=== PATIENT | female | born 1970 | race Caucasian/White ===

== ENCOUNTER → 2023-07-05 09:40 | Outpatient (POV) | payer OTHER, SELFPAY ==
[2023-07-05 10:28] VITALS: BP 125/71; PULSE 90; RESP 18; O2SAT 96; BMI 39.0
--- NOTE | 2023-07-05 10:33 | EXP.PAIN.OV ---
HPI Data of Consult Patient: new to practice Consult date: 07/05/23 Requesting Physician: Nelda Ferraro APRN Consult Narrative Reason for consult: Intrathecal pain pump establishment of care History of present illness: Ms. Hill is a 52 year old female who presents today as a new patient. She is a referral from Gloria Garcia's office. Today she rates her pain a 3 out of 10. Patient states her pain is all in her knee and bilateral legs related to CRPS. She states this has been going on for more than 15 years and is related to a injury at work where she missed a step coming down off a ladder. Patient states she did at that time tried more conservative measures such as [id number] medications such as Tylenol and ibuprofen, heat and ice and topicals with no additional relief. She had also gone to physical therapy with no additional improvement. She states she did start seeing a pain management in [facility] where they did try a spinal cord stimulator however approximately 6 months into the implant the device stopped working and her pain was changing and she had it removed. Patient then had a intrathecal device placed and has gotten good coverage since. Currently she has had her device replaced with a [employer]gana Ptytronic intrathecal pump and is doing well. Her pump location is in the left side of her lower abdomen. She is currently managed with Dilaudid 16.5 mg/mL with a daily dose of 3.3 mg/day and bupivacaine 15.1 mg/mL with a daily dose of 3.02 mg/day. Patient denies any side effects from this medication. She does state that this is really helping her and made a significant difference in her overall function. She does state that unfortunately her current provider retired and so she has been looking to reestablish care with a facility closer to home. Patient states she was having to drive approximately 4 hours in total to get her pump refilled and that she does just live in [place] which is approximately 20 minutes away. Patient is also managed with alprazolam 1 mg 3 times a day. Her Caleb is [id number]. Its been reviewed and appropriate. CC: Nelda Ferraro APRN [facility] Disclaimer: The information contained in this section may have been updated after the patient was seen, as this information can be updated by other users. Medical History (Updated 07/05/23 @ 10:37 by Nelda Ferraro APRN) Anxiety Bladder retention CRPS (complex regional pain syndrome) Failed spinal cord stimulator HTN (hypertension) Implantable intrathecal infusion pump present Surgical History (Updated 07/05/23 @ 10:30 by Kavitha Bhatti, RN) H/O left knee surgery History of section Hx of tonsillectomy Social History (Updated 07/05/23 @ 10:31 by Kavitha hBatti, RN) Smoking Status: Current every day smoker alcohol intake: never current occupational status: employed Travel in the last 8 weeks: None Review of Systems Review of Systems Review of systems:: pertinent systems reviewed and negative unless documented below Review of systems (narrative): Review of Systems: General: No recent weight changes, no fever, no sleep disturbances Respiratory: No cough, no shortness of air, no recurring pulmonary infections Cardiovascular/peripheral vascular: No chest pain, no palpitations, no edema, no shortness of breath Gastrointestinal: No new onset incontinence, normal bowel movements reported Genitourinary: No new onset incontinence Musculoskeletal: Bilateral leg pain, knee pain Psychiatric: [Normal mood/affect] Neurological: [Denies weakness in extremities], [denies balance issues] Meds Home Medications and Allergies Home Medications Medication Instructions Recorded Confirmed Type alprazolam 1 mg tablet 1 mg PO Q8H Anxiety 07/05/23 07/05/23 History bupivacaine (PF) 0.25 % (2,500 1 ml epidural CONT CRPS 07/05/23 07/05/23 History mcg/mL) epidural solution celecoxib 200 mg capsule 200 mg PO DAILY Pain 07/05/23 07/05/23 History esomepr
== END ==
PROVIDERS: Visit Provider Nurse Practitioner Family
DX: G90.523 Complex regional pain syndrome I of lower limb, bilateral (principal); G89.4 Chronic pain syndrome; Z97.8 Presence of other specified devices
CPT/HCPCS: 99202; G0463

== ENCOUNTER 2023-07-24 10:38 | Day surgery (SDC) | payer OTHER, BC, SELFPAY ==
[2023-07-24 10:51] VITALS: BP 148/92; PULSE 87; RESP 17; O2SAT 98; BMI 39.1
[2023-07-24 11:14] VITALS: BP 136/76; PULSE 80; RESP 18; O2SAT 98
[2023-07-24 11:15] VITALS: BP 136/76; PULSE 80; RESP 18; O2SAT 98
--- NOTE | 2023-07-24 11:24 | P.PCN_ITS ---
Procedure Date: 07/24/23 Time: 11:15 Anesthesiologist:: Sonny Tabares CRNA Complications:: None Pre-procedure Diagnosis:: CRPS bilateral lower limbs. Chronic pain syndrome. Post-procedure Diagnosis:: Same. Indications for Procedure:: Patient is a pleasant 52-year-old female comes our clinic today for intrathecal pain pump interrogation refill. Patient has come to us recently from previous pain clinic for intrathecal pain pump management. She has a Medtronic intrathecal pain pump in the left lower abdomen. Her pump contains Dilaudid 16.5 mg/mL with a daily dose of 3.3 mg/day. Bupivacaine 15.1 mg/mL with a daily dose of 3.02 mg/day. Patient denies any side effects or complications from the current intrathecal pain pump management Procedure Details:: Details of the procedure explained to the patient. The patient taken the [facility] room placed in the supine position on the fluoroscopy table. The area of the pump was cleansed using chlorhexidine as a cleansing solution. The pump was interrogated. Using fluoroscopy guidance the intrathecal pain pump was accessed with ease using a 22-gauge inch and half needle. 5 mL of solution was withdrawn and discarded appropriately. The pump was then filled incrementally with 20 cc of a solution containing Dilaudid 16.5 mg/mL and bupivacaine 15.1 mg/mL. The pump was filled incrementally with the fluoroscopy in the lateral position. Patient tolerated procedure without difficulty. There are no complications. Plan and Disposition:: Patient was discharged without incident.
[2023-07-24 11:31] VITALS: BP 134/80; PULSE 79; RESP 20
[2023-07-24 12:33] LABS: Amphetamine/Metha Screen,Urine Negative ng/ml (<1000); Benzodiazepines Screen,Urine Negative ng/ml (<200)
[2023-07-24 12:34] LABS: Barbiturates Screen,Urine Negative ng/ml (<200)
[2023-07-24 12:35] LABS: Cannabinoid Screen,Urine Negative ng/ml (<50); Methadone Screen,Urine Negative ng/ml (<300)
[2023-07-24 12:36] LABS: Cocaine Screen,Urine Negative ng/ml (<300); Opiate Screen,Urine Positive ng/ml (<300)
[2023-07-24 12:37] LABS: Phencyclidine Screen,Urine Negative ng/ml (<25)
[2023-07-31 03:44] LABS: Codeine Negative (Cutoff=100); Hydrocodone Negative (Cutoff=100); Hydromorphone Positive (.); Morphine Negative (Cutoff=100); Opiates Positive (.)
== END 2023-07-24 11:32 | disposition home or self-care (01) ==
PROVIDERS: Anesthesiology; PCP Nurse Practitioner; Visit Provider Nurse Anesthetist, Certified Registered
DX: G90.523 Complex regional pain syndrome I of lower limb, bilateral (principal); Z97.8 Presence of other specified devices
CPT/HCPCS: 80305; 80361; 80365; 95991; G0480

== ENCOUNTER 2023-10-09 11:17 | Day surgery (SDC) | payer OTHER, SELFPAY ==
--- OUTSIDE RECORDS SUMMARY | 2023-10-09 11:19 | XMS_ITS | Patient Health Record ---
Author Name Unknown Organization [facility] Address [address] [place] [address] [place] [address] Care Team Providers Care Product Support Representative Name Role Phone AbdiZaina Primary Care Provider Ofelia Dee Unavailable [phone] Danisha Marcial Unavailable [phone] ALLERGIES No Known Allergies REASON FOR REFERRAL No Information MEDICATIONS Medication SIG (Take, Route, Frequency, Duration) Notes Start Date End Date Status Ondansetron HCl 4 MG take 1 tablet by mo uth three times a day Orally once a day for 30 days Active EQ Omeprazole 20 MG 2 tablets Orally Onc e a day for 30 day(s) 03/05/2019 Active Saxenda 18 MG/3ML as directed Subcutan eous once a day Active Dilaudid 4 MG 1 tablet as needed O rally every 6 hrs for 30 days PRN 02/26/2023 Active NexIUM 40 MG take 1 capsule by mo uth every morning Once a day Orally 30 days Orally once a day for 90 days Active CeleBREX 200 MG take 1 capsule by mo uth once daily Orally once a day for 30 days Active Gabapentin 300 MG 1 capsule Orally Onc e a day for 30 day(s) 02/26/2023 Active Venlafaxine HCl ER 150 MG take 1 capsule by mouth every morning with food Orally once a day for 30 Active Xanax 1 MG 1 tablet Orally ever y 8 hours for 30 days 02/26/2023 Active Naloxone HCl 4 MG/0.1ML as directed Nasa lly as needed for 30 days
[2023-10-09 11:30] VITALS: BP 160/77; PULSE 88; RESP 18; TEMP 36.4; O2SAT 94; BMI 39.3
[2023-10-09 11:43] VITALS: BP 132/72; PULSE 110; O2SAT 94
[2023-10-09 11:51] VITALS: BP 132/72; PULSE 87; O2SAT 95
[2023-10-09 11:53] VITALS: BP 158/83; PULSE 86; RESP 16; O2SAT 94
--- NOTE | 2023-10-09 11:56 | EXP.PAIN.PRO ---
Procedure Date: 10/09/23 Time: 11:50 Anesthesiologist:: Sonny Tabares CRNA Complications:: None Pre-procedure Diagnosis:: CRPS type I lower limbs. Chronic pain syndrome. Post-procedure Diagnosis:: Same. Indications for Procedure:: Patient is a very pleasant 53-year-old female comes our clinic today for intrathecal pain pump interrogation refill. Patient is currently being managed with Dilaudid 16.5 mg/mL at a rate of 3.3 mg/day. Bupivacaine 15.1 mg/mL at a rate of 3.020 mg/day. Patient doing very well to current settings. She is not requesting any changes. Procedure Details:: Details of the procedure explained to the patient. The patient taken to procedure room placed in the supine position on the fluoroscopy table. The area of the pump was cleaned using chlorhexidine's cleansing solution. Using fluoroscopy guidance the intrathecal pain pump was accessed with ease. 5 mL of solution was withdrawn and discarded appropriately. The pump was then filled with 20 cc of a solution containing Dilaudid 16.5 mg/mL and bupivacaine 15.1 mg/mL. No changes on the right. Patient tolerated procedure without difficulty. There are no complications. Plan and Disposition:: Patient was discharged without incident.
== END 2023-10-09 11:53 | disposition home or self-care (01) ==
PROVIDERS: PCP Nurse Practitioner; Visit Provider Nurse Anesthetist, Certified Registered
DX: G90.523 Complex regional pain syndrome I of lower limb, bilateral (principal); G89.4 Chronic pain syndrome
CPT/HCPCS: 95991

== ENCOUNTER 2023-12-24 13:28 | Outpatient (CLI) | payer OTHER, SELFPAY ==
[2023-12-24 13:56] LABS: Basophils # 0.1 K/mm3 (0-0.2); Basophils % 0.7 % (0.1-2.0); Eosinophils # 0.2 K/mm3 (0.0-0.4); Eosinophils % 2.4 % (0.1-12.0); Hematocrit 40.5 % (37.0-47.0); Hemoglobin 13.4 g/dL (12.2-16.2); Lymphocytes # 2.2 K/mm3 (0.7-4.5); Lymphocytes % 25.6 % (10-50); Mean Corpuscular HGB Conc 33.2 g/dL (31.8-35.4); Mean Corpuscular Hemoglobin 30.3 pg (27.0-31.2); Mean Corpuscular Volume 91.3 fl (81-99); Mean Platelet Volume 7.8 fl (7.4-10.4); Monocytes # 0.4 K/mm3 (0.1-1.0); Monocytes % 5.2 % (1.7-9.3); Neutrophils # 5.5 K/mm3 (1.8-7.8); Platelet Count 278 K/mm3 (142-424); Red Blood Count 4.44 M/mm3 (4.20-5.40); Red Cell Distribution Width 13.9 % (11.5-17.5); White Blood Count 8.4 K/mm3 (4.8-10.8)
[2023-12-24 14:39] LABS: Anion Gap 8.7 mEq/L (5-15); Blood Urea Nitrogen 9 mg/dl (7-17); Calcium 9.5 mg/dl (8.4-10.2); Carbon Dioxide 32 mmol/L (22.0-30.0); Chloride 103 mmol/L (98-107); Estimated Glomerular Filt Rate 105 ml/min (>60); GFR (African American) 127 ML/MIN (>60); Glucose 109 mg/dl (74-100); Potassium 3.7 mmoL/L (3.5-5.1); Sodium 140 mmol/L (136-145)
[2023-12-24 15:04] LABS: Barbiturates Screen,Urine Negative ng/ml (<200)
[2023-12-24 15:05] LABS: Amphetamine/Metha Screen,Urine Negative ng/ml (<1000); Benzodiazepines Screen,Urine Negative ng/ml (<200)
[2023-12-24 15:06] LABS: Methadone Screen,Urine Negative ng/ml (<300)
[2023-12-24 15:07] LABS: Cannabinoid Screen,Urine Negative ng/ml (<50); Cocaine Screen,Urine Negative ng/ml (<300)
[2023-12-24 15:08] LABS: Opiate Screen,Urine Positive ng/ml (<300)
[2023-12-24 15:09] LABS: Phencyclidine Screen,Urine Negative ng/ml (<25)
== END 2023-12-24 23:59 ==
LOC: LAB 13:29
PROVIDERS: PCP Nurse Practitioner; Visit Provider Anesthesiology
DX: Z01.812 Encounter for preprocedural laboratory examination (principal); M51.36 Other intervertebral disc degeneration, lumbar region; Z79.899 Other long term (current) drug therapy
CPT/HCPCS: 36415; 80048; 80307; 85025

== ENCOUNTER 2023-12-28 06:00 | Day surgery (SDC) | payer OTHER, SELFPAY ==
[2023-12-25 16:40] VITALS: BMI 41.1
[2023-12-28] VITALS (7 sets, daily range): BP systolic 112–143; BP diastolic 68–90; PULSE 77–85; RESP 16–18; TEMP 36.3–36.6; O2SAT 95–99
[2023-12-28] MEDS: LACTATED RINGERS 1000ML 1,000 ML 25 ML IV (06:17)
[2023-12-28] MEDS: VANCOMYCIN HCL 2,000 MG in 0.9 % SODIUM CHLORIDE 250 ML 125 MG IV (07:02)
--- NOTE | 2023-12-28 08:02 | P.PNANES_ITS ---
[facility] Disclaimer: The information contained in this section may have been updated after the patient was seen, as this information can be updated by other users. Medical History Anxiety Bladder retention CRPS (complex regional pain syndrome) Failed spinal cord stimulator HTN (hypertension) Implantable intrathecal infusion pump present Surgical History H/O left knee surgery History of section Hx of tonsillectomy Family History Other No significant family history Social History Smoking Status: Current every day smoker alcohol intake: never substance use type: denies use current occupational status: employed Travel in the last 8 weeks: None [facility] Anesthesia Checklist Patient Identification Patient Identification: Verbal (Name & ) Structural Data Admitted From: Home Planned Operative Procedure/s: ipp Consent for Planned Operative Procedure(s) Verified: Yes NPO Status Verified Time NPO: 00:00 Additional verifications Anesthesia Reactions: No Hx Blood Transfusions: Yes Blood Transfusion Reaction: No Airway Assessment Mallampati Score:: Class II C-Spine Mobility Assessed: Yes TMJ Mobility Assessed: Yes Dentition: Good Dentition Neurological Assessment Level of Consciousness: Awake, Alert and Appropriate Anesthesia Plan Anesthesia Risk discussed: Yes Anesthesia Plan: Verified ASA Class: III Anesthesia Type: MAC
[2023-12-28] MEDS: LIDOCAINE 1% W/EPI 1:100,000 20ML VIAL 20 ML ×2 (08:39→08:40)
[2023-12-28] MEDS: GENTAMICIN 80 MG/2 ML VIAL (08:47)
[2023-12-28] MEDS: SODIUM CHLORIDE 0.9% 20ML VIAL 40 ML IV ×2 (08:48)
[2023-12-28] MEDS: MORPHINE 4MG/ML SYRINGE 4 MG IV (09:28)
--- NOTE | 2023-12-28 09:57 | SUR.PHASEII ---
Dr. James in w/ pt and family at this time.
--- NOTE | 2023-12-28 12:50 | EXP.OP.NOTE ---
Date of procedure: 12/28/23 Pre-op Diagnosis:: End-of-life intrathecal pain pump for postlaminectomy syndrome lumbar spine with lumbar radiculopathy symptoms Post-op Diagnosis:: Same Procedure performed:: Replacement intrathecal pain pump generator Surgeon:: Mitesh James MD PATIENT CLERICAL ASSISTANT:: Chandrakant Brown Anesthesia: MAC Estimated blood loss (mL): 55 Clinical Note:: This patient is a pleasant 53-year-old white female who we have taken over management of her pump. She was implanted by Dr. German. She is on intrathecal Dilaudid 16.5 mg per mill plus bupivacaine 15.1 mg per mall at 3.3 mg/day. She has not had any issues with her pump. She has an old indura catheter in place. Her pump is nearing end-of-life. She presents for replacement today. We will check her catheter and if there are any issues with the catheter we will replace the catheter if needed. Operative findings:: None Operative note:: Informed consent was obtained the risk and benefits of the procedure were explained to the patient. Patient was taken to the operating room placed in a right lateral decubitus position. Patient was prepped and draped in sterile fashion. C-arm fluoroscopy was used to view the pump and the catheter. The skin and subcutaneous tissues overlying the pump were anesthetized using lidocaine. I made incision dissected out the pump. We then accessed the catheter access port we were able to withdraw medication and CSF through the catheter access port. We did flush catheter with saline after pulling out 0.5 mL. After flushing the catheter we were able to withdraw CSF much easier through the catheter access port. The catheter was then disconnected. We connected the catheter to the new pump. We did fill the pump with 20 mL of intrathecal Dilaudid 16.5 mg/mL and bupivacaine 15.1 mg/mL. After connecting the catheter to the pump we again accessed the Port and were able to withdraw CSF very easily. The pump was placed back in the pocket after irrigating the pocket with antibiotic solution. We placed a antibiotic pouch in the pocket. After placing the pump in the pocket we did access the Port again we were again able to withdraw CSF very easily. The pocket was then closed with 2-0 Vicryl followed by 4-0 nylon and subcutaneous gabriela. The pump was interrogated and started at 3 mg/day with PTM boluses of 0.3 mg up to 4 times a day. Refill date is March 06, 2024. The patient tolerated the procedure well with no complications. Patient was discharged home neurologic intact with good relief of pain symptoms. Plan and disposition: We will follow-up with this patient in 1 week for wound check and to remove her Prevena. Will follow-up in 2 to 3 weeks for suture removal. Condition: stable Disposition: PACU Complications:: None
== END 2023-12-28 10:20 | disposition home or self-care (01) ==
PROVIDERS: PCP Nurse Practitioner Family; Visit Provider Anesthesiology
PROC: (CPT 62362; principal; 2023-12-28 07:30)
DX: M96.1 Postlaminectomy syndrome, not elsewhere classified (principal); M54.16 Radiculopathy, lumbar region; Z97.8 Presence of other specified devices; Z45.1 Encounter for adjustment and management of infusion pump
CPT/HCPCS: 62362; 96374; C1772; J2704; J3370

== ENCOUNTER → 2024-01-04 10:00 | Outpatient (POV) | payer OTHER, SELFPAY ==
--- NOTE | 2024-01-04 10:37 | EXP.PAIN.SOA ---
[facility] Pain Management SOAP Note Subjective:: Patient is a pleasant 53-year-old female who presents today for 1 week postop of intrathecal pain pump generator replacement on 12/28/2023. We are currently treating the patient for degenerative disc disease of lumbar spine with lumbar radiculopathy symptoms, lumbar postlaminectomy syndrome. Today she rates her pain a 3 out of 10. Patient denies any new trauma or injury. She states that she is doing well following her pump replacement. She is currently managed with Dilaudid 16.5 mg/day with a daily dose of 3.004 mg/day and bupivacaine 15.1 mg/mL with a daily dose of 2.75 mg/day. Patient denies any side effects from this medication. Her Caleb has been reviewed and is appropriate. Review of Systems: General: No recent weight changes, no fever, no sleep disturbances Respiratory: No cough, no shortness of air, no recurring pulmonary infections Cardiovascular/peripheral vascular: No chest pain, no palpitations, no edema, no shortness of breath Gastrointestinal: No new onset incontinence, normal bowel movements reported Genitourinary: No new onset incontinence Musculoskeletal: Low back pain Psychiatric: [Normal mood/affect] Neurological: [Denies weakness in extremities], [denies balance issues] Objective:: Physical Exam: General: Alert and oriented x3, no acute distress, pleasant and cooperative Lungs: Respirations even and unlabored, symmetrical chest expansion Eyes: PERRL Musculoskeletal: Flexion and extension of lumbar [spine] somewhat guarded secondary to pain, [antalgic gait noted] Neurological: Speech clear, no gross sensory deficit Skin: Incision site is clean, dry, well-approximated with sutures intact no erythema noted Assessment:: Degenerative disc disease of lumbar spine with lumbar radiculopathy symptoms, lumbar postlaminectomy syndrome status post generator replacement Plan:: Patient is doing well following her intrathecal pain pump generator replacement. I have counseled the patient to continue her 6-week postop restrictions of no submerging in water until her incisions are fully healed, minimal bending, twisting or lifting, and to continue to use her abdominal binder to prevent seroma formation. Patient has been counseled that her next visit we will plan on removing her sutures and adding Steri-Strips as needed. Patient will return to clinic in 2 weeks for reevaluation of symptoms and plan of care. Patient has been instructed to contact the clinic with any concerns before the next appointment. Dr. James has reviewed this note and agrees with this plan of care. This note was dictated using voice recognition software and make contain errors or omissions. -- It Is medically necessary for this patient to continue to have their intrathecal pump refilled at regular intervals. This patient had an intrathecal pain pump implanted after meeting criteria of chronic intractable pain for greater than 3 months and failing conservative treatments. Patient has committed and been compliant to the treatment plan and all planned follow up care. Since implantation of the intrathecal pain pump, the patient has had decreased pain and been more functional. Oral medications have been reduced including intake of oral opioids. Patient continues to do well with intrathecal therapy with decrease in pain symptoms and increase in functional status. Stopping intrathecal medications can lead to life threatening withdrawal, seizures, cardiac arrest, severe pain, and possible . Pumps that are not refilled at regular intervals can be damages and cause and need for replacement. We continually titrate dose and concentration to optimize pain relief and function. We are limited in concentration for certain drugs to safely deliver medications through the pump and stay within the recommendations from the Polyanalgesic Consensus Committee Guidelines. Depending on dose and concentration these pumps may need to be refilled sooner than 3 months as we titrate. [facility] Disclaimer: The information contained in this section may have been updated after the patient was seen, as this information can be updated by other users. Medical History Anxiety Bladder retention CRPS (complex regional pain syndrome) Failed spinal cord stimulator HTN (hypertension) Implantable intrathecal infusion pump present Surgical History H/O left knee surgery History of section Hx of tonsillectomy Family History Other No significant family history Social History (Updated 12/28/23 @ 08:03 by Chandrakant Brown CRNA) Smoking Status: Current every day smoker alcohol intake: never substance use type: denies use current occupational status: employed Travel in the last 8 weeks: None
[2024-01-04 11:39] VITALS: BP 166/91; PULSE 99; RESP 20; O2SAT 96; BMI 41.1
== END ==
LOC: SC.PAIN 10:01
PROVIDERS: PCP Nurse Practitioner Family; Visit Provider Nurse Practitioner Family
DX: M51.16 Intervertebral disc disorders with radiculopathy, lumbar region (principal); M96.1 Postlaminectomy syndrome, not elsewhere classified; Z97.8 Presence of other specified devices
CPT/HCPCS: 99212; G0463

== ENCOUNTER 2024-01-17 10:26 | Outpatient (POV) | payer OTHER, SELFPAY ==
--- NOTE | 2024-01-17 10:52 | EXP.PAIN.SOA ---
[facility] Pain Management SOAP Note Subjective:: Patient is a pleasant 53-year-old female who presents today for follow-up. We are currently treating the patient for degenerative disc disease of lumbar spine with lumbar radiculopathy symptoms, lumbar postlaminectomy syndrome. Today she rates her pain at 3 out of 10. Patient denies any new trauma or injury. She states she continues to do well following her intrathecal pain pump generator replacement on December 28. Patient does state that the current dosage still works well for her. She is currently managed with intrathecal Dilaudid 16.5 mg/mL with a daily dose of 3.004 mg/day and bupivacaine 15.1 mg/mL on a daily dose of 2.75 mg/day her Caleb has been reviewed and is appropriate. Review of Systems: General: No recent weight changes, no fever, no sleep disturbances Respiratory: No cough, no shortness of air, no recurring pulmonary infections Cardiovascular/peripheral vascular: No chest pain, no palpitations, no edema, no shortness of breath Gastrointestinal: No new onset incontinence, normal bowel movements reported Genitourinary: No new onset incontinence Musculoskeletal: Low back pain Psychiatric: [Normal mood/affect] Neurological: [Denies weakness in extremities], [denies balance issues] Objective:: Physical Exam: General: Alert and oriented x3, no acute distress, pleasant and cooperative Lungs: Respirations even and unlabored, symmetrical chest expansion Eyes: PERRL Musculoskeletal: Flexion and extension of lumbar [spine] somewhat guarded secondary to pain, [antalgic gait noted] Neurological: Speech clear, no gross sensory deficit Skin: Incision is clean, dry, well-approximated with sutures intact, minimal erythema noted Assessment:: Degenerative disc disease of lumbar spine with lumbar radiculopathy symptoms, lumbar postlaminectomy syndrome Plan:: Patient continues to do well with her pump generator replacement. Patient did have all of her sutures removed during today's visit. I have counseled the patient to continue her postop restrictions for the full 6 weeks. Patient is requesting if she can go back to work. Patient is a solar field service technician. I have counseled the patient that this is fine just to continue to monitor certain movements such as bending, twisting or lifting and minimizing lifting no more than 10 pounds at this time. Patient will return to clinic in 1 month for reevaluation of symptoms and plan of care. Patient has been instructed to contact the clinic with any concerns before the next appointment. Dr. James has reviewed this note and agrees with this plan of care. This note was dictated using voice recognition software and make contain errors or omissions. -- It Is medically necessary for this patient to continue to have their intrathecal pump refilled at regular intervals. This patient had an intrathecal pain pump implanted after meeting criteria of chronic intractable pain for greater than 3 months and failing conservative treatments. Patient has committed and been compliant to the treatment plan and all planned follow up care. Since implantation of the intrathecal pain pump, the patient has had decreased pain and been more functional. Oral medications have been reduced including intake of oral opioids. Patient continues to do well with intrathecal therapy with decrease in pain symptoms and increase in functional status. Stopping intrathecal medications can lead to life threatening withdrawal, seizures, cardiac arrest, severe pain, and possible . Pumps that are not refilled at regular intervals can be damages and cause and need for replacement. We continually titrate dose and concentration to optimize pain relief and function. We are limited in concentration for certain drugs to safely deliver medications through the pump and stay within the recommendations from the Polyanalgesic Consensus Committee Guidelines. Depending on dose and concentration these pumps may need to be refilled sooner than 3 months as we titrate. [facility] Disclaimer: The information contained in this section may have been updated after the patient was seen, as this information can be updated by other users. Medical History Anxiety Bladder retention CRPS (complex regional pain syndrome) Failed spinal cord stimulator HTN (hypertension) Implantable intrathecal infusion pump present Surgical History H/O left knee surgery History of section Hx of tonsillectomy Family History Other No significant family history Social History (Updated 12/28/23 @ 08:03 by Chandrakant Brown CRNA) Smoking Status: Current every day smoker alcohol intake: never substance use type: denies use current occupational status: employed and other Travel in the last 8 weeks: None
[2024-01-17 12:33] VITALS: BP 139/86; PULSE 87; RESP 18; O2SAT 96; BMI 41.1
== END 2024-01-17 23:59 ==
LOC: SC.PAIN 10:27
PROVIDERS: PCP Nurse Practitioner Family; Visit Provider Nurse Practitioner Family
DX: M51.16 Intervertebral disc disorders with radiculopathy, lumbar region (principal); M96.1 Postlaminectomy syndrome, not elsewhere classified
CPT/HCPCS: 99212; 99213; G0463

== ENCOUNTER 2024-02-22 12:42 | Day surgery (SDC) | payer OTHER, SELFPAY ==
[2024-02-22 13:09] VITALS: BP 136/78; PULSE 75; RESP 16; O2SAT 98; BMI 41.1
[2024-02-22 13:23] VITALS: BP 161/76; PULSE 66; RESP 18; O2SAT 97
[2024-02-22 13:24] VITALS: BP 161/76; PULSE 86; RESP 18; O2SAT 97
--- NOTE | 2024-02-22 13:27 | EXP.PAIN.PRO ---
Procedure Date: 02/22/24 Time: 13:15 Anesthesiologist:: Sonny Tabares CRNA Complications:: None Pre-procedure Diagnosis:: Degenerative disc lumbar spine multilevels. Lumbar radiculopathy Post-procedure Diagnosis:: Same. Indications for Procedure:: Patient is a very pleasant 53-year-old female comes our clinic today for intrathecal pain pump interrogation and refill. She is currently being managed with hydromorphone 16.5 mg/mL and bupivacaine 15.1 mg/mL. She is doing very well with her current settings. She is not reporting side effects or complications. She is not requesting any changes. Procedure Details:: Details of the procedure explained to the patient. The patient taken procedure and placed in the supine position on fluoroscopy table. The area over the pump was cleansed using chlorhexidine as a cleansing solution. The pump was interrogated. The pump was accessed with ease using a 22-gauge inch and half needle using fluoroscopy guidance. 9 mL of solution was withdrawn discarded appropriate. The pump was then filled with 20 cc of solution containing hydromorphone 16.5 mg/mL and bupivacaine 15.1 mg/mL. The rate will continue as before: Hydromorphone 3.004 mg/day and bupivacaine 2.75 mg/day. Patient tolerated procedure without difficulty. There are no complications. Plan and Disposition:: Patient was discharged without incident.
[2024-02-22 13:35] VITALS: BP 139/86; PULSE 64; RESP 16; O2SAT 98
== END 2024-02-22 13:35 | disposition home or self-care (01) ==
PROVIDERS: PCP Nurse Practitioner Family; Visit Provider Nurse Anesthetist, Certified Registered
DX: M51.16 Intervertebral disc disorders with radiculopathy, lumbar region (principal); Z97.8 Presence of other specified devices; Z45.1 Encounter for adjustment and management of infusion pump
CPT/HCPCS: 95991

== ENCOUNTER → 2024-04-15 12:49 | Day surgery (SDC) | payer OTHER, BC, SELFPAY ==
[2024-04-15 13:31] VITALS: BP 127/79; PULSE 75; RESP 18; O2SAT 97
--- NOTE | 2024-04-15 13:37 | EXP.PAIN.PRO ---
Procedure Date: 04/15/24 Time: 13:40 Anesthesiologist:: Sonny Tabares CRNA Complications:: None Pre-procedure Diagnosis:: Degenerative disc lumbar spine multilevels. Lumbar radiculopathy. Post-procedure Diagnosis:: Same. Indications for Procedure:: Patient is a pleasant 53-year-old female comes our clinic today for intrathecal pain pump interrogation refill. She is currently being managed with hydromorphone 16.5 mg/mL and bupivacaine 15.1 mg/mL. She is doing very well with her current settings. She is not reporting side effects or complications. She is not requesting changes. Procedure Details:: Details of the procedure explained to the patient. The patient taken procedure and placed in the supine position on the fluoroscopy table. The area over the pump was cleansed using chlorhexidine as a cleansing solution. The pump was interrogated. The pump was accessed with ease using a 22-gauge inch and half needle under fluoroscopy guidance. 9.4 mL solution was withdrawn discarded appropriate. The pump was then filled with 20 cc of solution containing bupivacaine 15.1 mg/mL and hydromorphone 16.5 mg/mL. The rate will continue as before hydromorphone 3.004 mg/day. And bupivacaine 2.75 mg/day. Patient tolerated procedure without difficulty. No complications. Plan and Disposition:: Patient was discharged without incident.
[2024-04-15 13:39] VITALS: BP 148/76; PULSE 82; RESP 18; TEMP 36.7; O2SAT 98; BMI 39.3
[2024-04-15 13:40] VITALS: BP 140/88; PULSE 74; RESP 18; O2SAT 98
[2024-04-15 19:40] LABS: Amphetamine/Metha Screen,Urine Negative ng/ml (<1000)
[2024-04-15 19:41] LABS: Barbiturates Screen,Urine Negative ng/ml (<200); Benzodiazepines Screen,Urine Negative ng/ml (<200)
[2024-04-15 19:42] LABS: Cannabinoid Screen,Urine Negative ng/ml (<50)
[2024-04-15 19:43] LABS: Cocaine Screen,Urine Negative ng/ml (<300); Methadone Screen,Urine Negative ng/ml (<300)
[2024-04-15 19:44] LABS: Opiate Screen,Urine Positive ng/ml (<300)
[2024-04-15 19:45] LABS: Phencyclidine Screen,Urine Negative ng/ml (<25)
== END | disposition home or self-care (01) ==
PROVIDERS: Anesthesiology; PCP Nurse Practitioner Family; Visit Provider Nurse Anesthetist, Certified Registered
DX: M51.16 Intervertebral disc disorders with radiculopathy, lumbar region (principal); Z97.8 Presence of other specified devices; Z45.1 Encounter for adjustment and management of infusion pump
CPT/HCPCS: 80307; 80361; 80365; 95991; G0480

== ENCOUNTER 2024-06-08 21:03 | Emergency (ER) | payer BC, SELFPAY ==
[2024-06-08 21:04] VITALS: BP 140/86; PULSE 78; RESP 20; TEMP 36.6; O2SAT 98; BMI 38.4
[2024-06-08 21:27] LABS: Microscopic, Urine URINE MICROSCOPIC (MICROSCOPIC)
--- NOTE | 2024-06-08 21:28 | CT_ITS ---
PROCEDURE INFORMATION: Exam: CT Abdomen And Pelvis Without Contrast Exam date and time: 06/08/2024 9:55 PM Age: 53 years old Clinical indication: Abdominal pain; Flank; Left; Additional info: Possible kidney stone. Left flank pain TECHNIQUE: Imaging protocol: Computed tomography of the abdomen and pelvis without contrast. Radiation optimization: All CT scans at this facility use at least one of these dose optimization techniques: automated exposure control; mA and/or kV adjustment per patient size (includes targeted exams where dose is matched to clinical indication); or iterative reconstruction. COMPARISON: No relevant prior studies available. FINDINGS: Liver: Normal. No mass. Gallbladder and biliary ducts: Concentric gallbladder wall thickening and irregular wall calcification. Pancreas: Normal. No ductal dilation. Spleen: Normal. No splenomegaly. Adrenal glands: Normal. No mass. Kidneys and ureters: Bilateral nonobstructive calculi measuring up to 0.3 cm in right kidney. Stomach and bowel: Unremarkable. No obstruction. No mucosal thickening. Appendix: No evidence of appendicitis. Intraperitoneal space: Tiny dependent pelvis free fluid collection likely physiologic. Vasculature: Unremarkable. No abdominal aortic aneurysm. Lymph nodes: Unremarkable. No enlarged lymph nodes. Urinary bladder: Unremarkable as visualized. Reproductive: Probable 1.6 x 2.9 cm partially calcified left ovarian cystic focus. Ovaries not visualized. Bones/joints: Unremarkable. No acute fracture. Soft tissues: Unremarkable. IMPRESSION: 1. Bilateral nonobstructive renal calculi. 2. Irregular gallbladder wall partial wall calcification. Although non specific can be associated with increased risk of gallbladder neoplasm. Consider nonurgent ultrasound for further imaging correlation. 3. Nonspecific calcified left ovarian cystic focus. Also recommend nonurgent ultrasound for further imaging characterization.
[2024-06-08 21:32] LABS: Bilirubin,Urine Negative (Negative); Blood, Urine TRACE-I (Negative); Color,Urine YELLOW (Yellow); Glucose,Urine (UA) Negative (Negative); Ketones,Urine Negative (Negative); Leukocyte Esterase,Urine Negative (Negative); Nitrate,Urine Negative (Negative); PH,Urine 7.5 (5.0-8.5); Protein,Urine Negative (Negative)
[2024-06-08 21:35] LABS: Appearance,Urine Slightly Cloudy (Clear)
[2024-06-08] MEDS: RINGERS SOLUTION,LACTATED 500 ML 999 ML IV (21:37)
[2024-06-08] MEDS: KETOROLAC 30MG/ML VIAL 15 MG IV (21:37)
[2024-06-08 21:39] LABS: Urine Pregnancy, HCG Qual. Negative (Negative)
[2024-06-08 21:39] LABS: Basophils # 0.1 K/mm3 (0-0.2); Basophils % 1.5 % (0.1-2.0); Eosinophils # 0.2 K/mm3 (0.0-0.4); Eosinophils % 3.9 % (0.1-12.0); Hematocrit 38.5 % (37.0-47.0); Hemoglobin 12.9 g/dL (12.2-16.2); Lymphocytes # 1.3 K/mm3 (0.7-4.5); Mean Corpuscular HGB Conc 33.4 g/dL (31.8-35.4); Mean Corpuscular Volume 92.8 fl (81-99); Mean Platelet Volume 7.5 fl (7.4-10.4); Monocytes # 0.4 K/mm3 (0.1-1.0); Neutrophils # 3.4 K/mm3 (1.8-7.8); Neutrophils % 63.7 % (37.0-80.0); Platelet Count 246 K/mm3 (142-424); Red Blood Count 4.15 M/mm3 (4.20-5.40); Red Cell Distribution Width 14.9 % (11.5-17.5); White Blood Count 5.4 K/mm3 (4.8-10.8)
--- NOTE | 2024-06-08 21:42 | HMH.EDGENADL ---
Discharge Plan Disposition Patient Disposition: Home, Self-Care Prescriptions Prescriptions: New methocarbamol 500 mg tablet 1,000 mg PO Q6H PRN (Reason: pain) Qty: 30 0RF lidocaine 5 % adhesive patch,medicated 1 patch topical DAILY PRN (Reason: pain) Qty: 30 0RF Rx Instructions: leave on most painful area for up to 12 hrs No Action nitrofurantoin macrocrystal 50 mg capsule 50 mg PO DAILY Patient Comments: TAKE ONE CAPSULE BY MOUTH TWICE DAILY celecoxib 200 mg capsule 200 mg PO DAILY Patient Comments: TAKE 1 CAPSULE BY MOUTH EVERY DAY alprazolam 1 mg tablet 1 mg PO Q8H Patient Comments: TAKE 1 TABLET BY MOUTH EVERY 8 HOURS ondansetron HCl 4 mg tablet 4 mg PO DIRECTED Patient Comments: TAKE 1 TABLET BY MOUTH EVERY DAY venlafaxine 150 mg capsule,extended release 24hr 150 mg PO DAILY Patient Comments: take 1 capsule by mouth daily esomeprazole magnesium 40 mg capsule,delayed release(DR/EC) 40 mg PO DAILY Patient Comments: TAKE 1 CAPSULE BY MOUTH EVERY DAY lisinopril 30 mg tablet 30 mg PO DAILY Patient Comments: TAKE 1 TABLET BY MOUTH EVERY DAY hydrochlorothiazide 25 mg tablet 25 mg PO DAILY Patient Comments: TAKE 1 TABLET BY MOUTH EVERY DAY bupivacaine (PF) 0.25 % (2,500 mcg/mL) Solution 1 ml epidural CONT Rx Instructions: INTRATHECAL PAIN PUMP INFUSION. 15.1MG/ML. SEE EMR FOR CURRENT DAILY DOSE Dilaudid (PF) 0.2 mg/mL Syringe 0.2 mg IM CONT Rx Instructions: INTRATHECAL PAIN PUMP INFUSION. 16.5MG/ML. SEE EMR FOR CURRENT DAILY DOSE Referrals Follow up/Referrals: Cass Alvarado [Primary Care Provider] - See instructions Activity Restrictions/Add. Instructions Additional Instructions/Restrictions: Please follow-up with your primary care provider, there are some calcifications on your bladder and in your pelvis that would benefit from a outpatient ultrasound evaluation. Please take Tylenol and ibuprofen as needed for pain. Please take Robaxin and use lidocaine patches as needed. Please return to the emergency department if you develop any new or worsening symptoms or become concerned for your health. Clinical Impressions Clinical Impression: Flank pain Instructions Patient Instructions: DI for Urinary Tract Infection (UTI), DI for Urinary Tract Infection in Children Discharge ED Provider: Romero Diop General Adult HPI <LASHAE Silverio - Last Filed: 06/08/24 23:28> General Chief complaint: Urogenital-Female Stated complaint: lower back pain Time Seen by Provider: 06/08/24 21:42 Mode of Arrival: Ambulatory Source of Information: Patient Limitations: No Limitations Description of Symptoms (Recalled from ER Triage Doc. by RN): 53 F presents with c/o 'chronic uti symptoms' which have worsened since Sunday and she now has left flank pain. Patient states she is taking Macrobid daily for preventative UTI. Patient denies fever or chills. History of Present Illness HPI narrative: Patient presents for evaluation of left flank pain. Patient states that she has been having dysuria since Sunday and had has progressed to the point of having left flank pain. She has been on Macrobid daily for preventing UTIs. She denies chest pain shortness of breath fever chills hemoptysis hematochezia melena vomiting diarrhea but does have nausea. Related Data Home Medications Medication Instructions Recorded Confirmed alprazolam 1 mg tablet 1 mg PO Q8H Anxiety 07/05/23 02/22/24 bupivacaine (PF) 0.25 % (2,500 1 ml epidural CONT CRPS 07/05/23 02/22/24 mcg/mL) epidural solution celecoxib 200 mg capsule 200 mg PO DAILY Pain 07/05/23 02/22/24 esomeprazole magnesium 40 mg 40 mg PO DAILY STOMACH 07/05/23 02/22/24 capsule,delayed release hydrochlorothiazide 25 mg tablet 25 mg PO DAILY Fluid 07/05/23 02/22/24 hydromorphone (PF) 0.2 mg/mL 0.2 mg IM CONT Pain 07/05/23 02/22/24 injection syringe (Dilaudid (PF)) lisinopril 30 mg tablet 30 mg PO DAILY BLOOD PRESSURE 07/05/23 02/22/24 ondansetron HCl 4 mg tablet 4 mg PO DIRECTED CRPS 07/05/23 02/22/24 venlafaxine 150 mg 150 mg PO DAILY MOOD 07/05/23 02/22/24 capsule,extended release 24 hr nitrofurantoin macrocrystal 50 mg 50 mg PO DAILY 12/25/23 02/22/24 capsule Previous Rx's Medication Instructions Recorded lidocaine 5 % topical patch 1 patch topical DAILY PRN pain #30 07/21/24 ea methocarbamol 500 mg tablet 1,000 mg (2 x 500 mg) PO Q6H PRN 06/08/24 pain #30 tabs Allergies Allergy/AdvReac Type Severity Reaction Status Date / Time No Known Allergies Allergy Verified 02/22/24 13:09 PFS <LASHAE Silverio - Last Filed: 06/08/24 23:28> [facility] Disclaimer: The information contained in this section may have been updated after the patient was seen, as this information can be updated by other users. Medical History (Updated 06/08/24 @ 23:37 by Romero Diop MD) Implantable intrathecal infusion pump present Failed spinal cord stimulator CRPS (complex regional pain syndrome) Anxiety HTN (hypertension) Bladder retention Surgical History H/O left knee surgery Hx of tonsillectomy History of section Family History Other No significant family history Social History Smoking Status: Current every day smoker alcohol intake: never substance use type: denies use current occupational status: employed Travel in the last 8 weeks: None <LASHAE Silverio - Last Filed: 06/08/24 23:28> ROS Obtained: Yes Systems reviewed as appropriate & no additional complaints except as documented Physical Exam <LASHAE Silverio - Last Filed: 06/08/24 23:28> General General appearance: alert and in no apparent distress Respiratory Respiratory exam: Present normal lung sounds bilaterally Cardiovascular Cardiovascular exam: Present regular rate and normal rhythm Abdominal Exam Abdominal exam: Present soft and normal bowel sounds; Absent tenderness, guarding or rebound Extremities Exam Extremities exam: Present normal inspection and full ROM Back Exam Back exam: Present normal inspection, full ROM and CVA tenderness (L); Absent CVA tenderness (R) Neurological Exam Neurological exam: Present alert and oriented X3 Medical Decision Making <LASHAE Silverio - Last Filed: 06/08/24 23:28> Medical Records Medical records reviewed: Yes I reviewed the patient's medical records. Caleb Inquiry Pt receiving controlled substance: No Vital Signs: 06/08/24 21:04 06/08/24 23:57 Temperature 98 F 98.5 F Temperature Source Oral Oral Pulse Rate 68 Pulse Rate [Left] 78 Respiratory Rate 20 18 Blood Pressure 146/78 H Blood Pressure [Right Arm] 140/86 Blood Pressure Mean [Right Arm] 104 Blood Pressure Source [Right Arm] Automatic Cuff Blood Pressure Position [Right Arm] Sitting 02 Sat by Pulse Oximetry 98 Oxygen Delivery Method Room Air Room Air Lab Data Lab results reviewed: Yes I reviewed the patient's lab results. Lab Results 06/08/24 21:16: Urine Color Yellow, Urine Appearance Slightly cloudy, Urine pH 7.5, Ur Specific Holland 1.020, Urine Protein Negative, Urine Glucose (UA) Negative, Urine Ketones Negative, Urine Blood Trace-i, Urine Nitrate Negative, Urine Bilirubin Negative, Urine Urobilinogen 1.0, Ur Leukocyte Esterase Negative, Urine RBC 5-10, Urine WBC None, Ur Squamous Epith Cells Occasional, Urine Bacteria Trace, Urine HCG, Qual Negative 06/08/24 21:31: WBC 5.4, RBC 4.15 L, Hgb 12.9, Hct 38.5, MCV 92.8, MCH 31.0, MCHC 33.4, RDW 14.9, Plt Count 246, MPV 7.5, Neut % (Auto) 63.7, Lymph % (Auto) 24.0, Vigo % (Auto) 7.0, Eos % (Auto) 3.9, Baso % (Auto) 1.5, Neut # (Auto) 3.4, Lymph # (Auto) 1.3, Vigo # (Auto) 0.4, Eos # (Auto) 0.2, Baso # (Auto) 0.1, Sodium 141, Potassium 4.1, Chloride 106, Carbon Dioxide 33 H, Anion Gap 6.1, BUN 14, Creatinine 0.70, Estimated Creat Clear 140, Estimated GFR 88, Est GFR ( Amer) 106, Glucose 98, Calcium 9.4, Total Bilirubin 0.2, AST 36, ALT 25, Alkaline Phosphatase 73, Total Protein 6.7, Albumin 3.9, Globulin 2.8, Albumin/Globulin Ratio 1.4 06/08/24 21:31 06/08/24 21:31 Orders (Tests/Meds): ED MEDICATIONS Discontinued Medications Generic Name Dose Route Start Last Admin Trade Name Freq PRN Reason Stop Dose Admin Acetaminophen 1,000 mg 06/08/24 21:51 06/08/24 22:09 Acetaminophen 1,000mg/100ml Vial IV 06/08/24 21:52 1,000 mg ONCE ONE Administration Lactated Ringer's 500 mls @ 999 mls/hr 06/08/24 21:34 06/08/24 21:37 Lactated Ringer's 500ml IV 06/08/24 22:04 999 mls/hr .Q31M ONE Administration Ketorolac Tromethamine 15 mg 06/08/24 21:34 06/08/24 21:37 Ketorolac 30mg/Ml Vial IV 06/08/24 21:35 15 mg ONCE ONE Administration Lidocaine 1 each 06/08/24 23:34 06/09/24 00:04 Lidocaine 5% Transdermal Patch TP 06/08/24 23:35 1 each ONCE ONE Administration Methocarbamol 1,000 mg 06/08/24 23:34 06/09/24 00:04 Methocarbamol 500mg Tablet PO 06/08/24 23:35 1,000 mg ONCE ONE Administration Morphine Sulfate 4 mg 06/08/24 23:06 Morphine 4mg/Ml Syringe IV 06/08/24 23:07 ONCE ONE Ondansetron HCl 4 mg 06/08/24 21:51 06/08/24 22:10 Ondansetron 4mg/2ml Vial IV 06/08/24 21:52 4 mg ONCE ONE Administration ORDERS Category Date Time Status CT abdomen pelvis wo con Stat Cat Scan 06/08/24 21:28 Completed Complete Blood Count Auto Diff Stat Lab 06/08/24 21:31 Completed Comprehensive Metabolic Panel Stat Lab 06/08/24 21:31 Completed UA [Urinalysis and Microscopic] Stat Lab 06/08/24 21:16 Completed Urine , HCG Qual. Stat Lab 06/08/24 21:16 Completed Medical Decision Narrative: In summary patient is a 53-year-old female who presents to the emergency department for evaluation of dysuria and left flank pain. Patient is hemodynamically stable upon arrival, afebrile. Physical exam is remarkable for tenderness to percussion on the left CVA abdominal exam has no rebound or guarding or rigidity with normal bowel sounds. Differential diagnosis includes Nael nephritis versus complicated UTI versus kidney stone etc. Initial workup will be conducted with hematologic labs urinalysis CT scan abdomen pelvis. Initial interventions include crystalloid bolus Toradol Tylenol. Initial workup reviewed by me shows that her hematologic labs are nonactionable and her urinalysis shows microscopic blood but no overt pyuria and my informal interpretation of her CT scan suggest a stone in the left ureter without hydronephrosis by my read prior to radiology results.. Upon repeat evaluation patient has had no improvement with initial intervention. Formal CT read is pending at the time of handoff to Dr. Diop at 2300 hrs. <Romero Diop MD - Last Filed: 06/09/24 00:15> Vital Signs: 06/08/24 21:04 06/08/24 23:57 Temperature 98 F 98.5 F Temperature Source Oral Oral Pulse Rate 68 Pulse Rate [Left] 78 Respiratory Rate 20 18 Blood Pressure 146/78 H Blood Pressure [Right Arm] 140/86 Blood Pressure Mean [Right Arm] 104 Blood Pressure Source [Right Arm] Automatic Cuff Blood Pressure Position [Right Arm] Sitting 02 Sat by Pulse Oximetry 98 Oxygen Delivery Method Room Air Room Air Lab Data Lab Results 06/08/24 21:16: Urine Color Yellow, Urine Appearance Slightly cloudy, Urine pH 7.5, Ur Specific [place] 1.020, Urine Protein Negative, Urine Glucose (UA) Negative, Urine Ketones Negative, Urine Blood Trace-i, Urine Nitrate Negative, Urine Bilirubin Negative, Urine Urobilinogen 1.0, Ur Leukocyte Esterase Negative, Urine RBC 5-10, Urine WBC None, Ur Squamous Epith Cells Occasional, Urine Bacteria Trace, Urine HCG, Qual Negative 06/08/24 21:31: WBC 5.4, RBC 4.15 L, Hgb 12.9, Hct 38.5, MCV 92.8, MCH 31.0, MCHC 33.4, RDW 14.9, Plt Count 246, MPV 7.5, Neut % (Auto) 63.7, Lymph % (Auto) 24.0, Vigo % (Auto) 7.0, Eos % (Auto) 3.9, Baso % (Auto) 1.5, Neut # (Auto) 3.4, Lymph # (Auto) 1.3, Vigo # (Auto) 0.4, Eos # (Auto) 0.2, Baso # (Auto) 0.1, Sodium 141, Potassium 4.1, Chloride 106, Carbon Dioxide 33 H, Anion Gap 6.1, BUN 14, Creatinine 0.70, Estimated Creat Clear 140, Estimated GFR 88, Est GFR ( Amer) 106, Glucose 98, Calcium 9.4, Total Bilirubin 0.2, AST 36, ALT 25, Alkaline Phosphatase 73, Total Protein 6.7, Albumin 3.9, Globulin 2.8, Albumin/Globulin Ratio 1.4 Orders (Tests/Meds): ED MEDICATIONS Discontinued Medications Generic Name Dose Route Start Last Admin Trade Name Beronica PRN Reason Stop Dose Admin Acetaminophen 1,000 mg 06/08/24 21:51 06/08/24 22:09 Acetaminophen 1,000mg/100ml Vial IV 06/08/24 21:52 1,000 mg ONCE ONE Administration Lactated Ringer's 500 mls @ 999 mls/hr 06/08/24 21:34 06/08/24 21:37 Lactated Ringer's 500ml IV 06/08/24 22:04 999 mls/hr .Q31M ONE Administration Ketorolac Tromethamine 15 mg 06/08/24 21:34 06/08/24 21:37 Ketorolac 30mg/Ml Vial IV 06/08/24 21:35 15 mg ONCE ONE Administration Lidocaine 1 each 06/08/24 23:34 06/09/24 00:04 Lidocaine 5% Transdermal Patch TP 06/08/24 23:35 1 each ONCE ONE Administration Methocarbamol 1,000 mg 06/08/24 23:34 06/09/24 00:04 Methocarbamol 500mg Tablet PO 06/08/24 23:35 1,000 mg ONCE ONE Administration Morphine Sulfate 4 mg 06/08/24 23:06 Morphine 4mg/Ml Syringe IV 06/08/24 23:07 ONCE ONE Ondansetron HCl 4 mg 06/08/24 21:51 06/08/24 22:10 Ondansetron 4mg/2ml Vial IV 06/08/24 21:52 4 mg ONCE ONE Administration ORDERS Category Date Time Status CT abdomen pelvis wo con Stat Cat Scan 06/08/24 21:28 Completed Complete Blood Count Auto Diff Stat Lab 06/08/24 21:31 Completed Comprehensive Metabolic Panel Stat Lab 06/08/24 21:31 Completed UA [Urinalysis and Microscopic] Stat Lab 06/08/24 21:16 Completed Urine , HCG Qual. Stat Lab 06/08/24 21:16 Completed Medical Decision Narrative: In summary patient is a 53-year-old female who presents to the emergency department for evaluation of dysuria and left flank pain. Patient is hemodynamically stable upon arrival, afebrile. Physical exam is remarkable for tenderness to percussion on the left CVA abdominal exam has no rebound or guarding or rigidity with normal bowel sounds. Differential diagnosis includes Nael nephritis versus complicated UTI versus kidney stone etc. Initial workup will be conducted with hematologic labs urinalysis CT scan abdomen pelvis. Initial interventions include crystalloid bolus Toradol Tylenol. Initial workup reviewed by me shows that her hematologic labs are nonactionable and her urinalysis shows microscopic blood but no overt pyuria and my informal interpretation of her CT scan suggest a stone in the left ureter without hydronephrosis by my read prior to radiology results.. Upon repeat evaluation patient has had no improvement with initial intervention. Formal CT read is pending at the time of handoff to Dr. Diop at 2300 hrs. Chikis ARTEAGA: I assumed care of the patient at the time of handoff from the prior provider. On reassessment patient reports symptomatic improvement. CT imaging independently interpreted by me and shows some calcifications within the pelvis, including the bladder and adnexa, but no evidence of acute obstructive ureterolithiasis, perinephric stranding or any other emergent pathology. Urinalysis is not consistent with an infection. Interactive discussion had with patient regarding her presentation. She reports that she had some increased activity and initially thought it was a muscle strain, but has been more persistent than normal. Given this, patient was given a dose of Robaxin and a lidocaine patch and discharged with prescription for same. She was given strict return precautions. She was instructed to follow-up with PCP for outpatient ultrasound of the calcifications in her bladder and adnexa as they could be evidence of malignancy. Critical Care <LASHAE Silverio - Last Filed: 06/08/24 23:28> Critical Care Time Critical Care Time: No
[2024-06-08 21:46] LABS: Potassium 4.1 mmoL/L (3.5-5.1); Sodium 141 mmol/L (136-145)
[2024-06-08 21:47] LABS: Chloride 106 mmol/L (98-107)
[2024-06-08 21:48] LABS: Alanine Aminotransferase 25 U/L (12-78); Aspartate Amino Transferase 36 U/L (14-36); Blood Urea Nitrogen 14 mg/dl (7-17); Creatinine Clearance Estimated 140 mL/min (50-200); Estimated Glomerular Filt Rate 88 ml/min (>60); GFR (African American) 106 ML/MIN (>60)
[2024-06-08 21:48] LABS: Bacteria,Urine Trace /lpf; Squamous Epithelial Cell,Urine Occasional #/hpf (0-5)
[2024-06-08 21:49] LABS: Albumin Level 3.9 g/dl (3.5-5.0); Albumin/Globulin Ratio 1.4 (1.1-1.8); Alkaline Phosphatase 73 U/L (38-126); Anion Gap 6.1 mEq/L (5-15); Bilirubin,Total 0.2 mg/dl (0.2-1.3); Calcium 9.4 mg/dl (8.4-10.2); Carbon Dioxide 33 mmol/L (22.0-30.0); Globulin 2.8 g/dL (1.3-3.2); Glucose 98 mg/dl (74-100); Total Protein,Serum 6.7 g/dl (6.3-8.2)
[2024-06-08] MEDS: ACETAMINOPHEN 1,000MG/100ML VIAL 1000 MG IV (22:09)
[2024-06-08] MEDS: ONDANSETRON 4MG/2ML VIAL 4 MG IV (22:10)
[2024-06-08 23:57] VITALS: BP 146/78; PULSE 68; RESP 18; TEMP 36.9; O2SAT 98
[2024-06-09] MEDS: LIDOCAINE 5% TRANSDERMAL PATCH 1 EACH TP (00:04)
[2024-06-09] MEDS: METHOCARBAMOL 500MG TABLET 1000 MG PO (00:04)
== END 2024-06-09 00:08 | disposition home or self-care (01) ==
PROVIDERS: Emergency Medicine; Emergency Provider Emergency Medicine; PCP Nurse Practitioner Family
DX: R10.32 Left lower quadrant pain (principal); M54.59 Other low back pain; R30.0 Dysuria; F17.210 Nicotine dependence, cigarettes, uncomplicated; I10 Essential (primary) hypertension
CPT/HCPCS: 74176; 80053; 81001; 81025; 85025; 96374; 96375; 99285; J0131; J1885; J2405; J7120

== ENCOUNTER 2024-06-17 10:05 | Day surgery (SDC) | payer OTHER, BC, SELFPAY ==
[2024-06-17 10:20] VITALS: BP 149/76; PULSE 90; RESP 18; TEMP 36.6; O2SAT 93; BMI 41.1
[2024-06-17 10:24] VITALS: BP 123/69; PULSE 84; RESP 18; O2SAT 97
[2024-06-17 10:25] VITALS: BP 123/69; PULSE 84; RESP 18; O2SAT 96
--- NOTE | 2024-06-17 10:25 | EXP.PAIN.PRO ---
Procedure Date: 06/17/24 Time: 10:15 Anesthesiologist:: Sonny Tabares CRNA Complications:: None Pre-procedure Diagnosis:: Degenerative disc lumbar spine multilevels. Lumbar radiculopathy. Lumbar postlaminectomy syndrome. Post-procedure Diagnosis:: Same. Indications for Procedure:: Patient is a very pleasant 53-year-old female comes our clinic today for intrathecal pain pump interrogation and refill. She is currently being managed with Dilaudid 16.5 mg/mL. Also bupivacaine 15.1 mg/mL. Patient is doing well with her current settings. Dilaudid is 3.004 mg/day. Bupivacaine is 2.750 mg/day. She is not reporting side effects or complications. She not requesting changes. Procedure Details:: Details of the procedure explained to the patient. The patient was taken to the procedure room placed in the supine position on the fluoroscopy table. Using fluoroscopy guidance the intrathecal pain pump was accessed using fluoroscopy guidance with ease using a 22-gauge inch and half needle. 6.5 mL of solution was withdrawn and discarded appropriate. The pump was then filled using fluoroscopy guidance with 20 cc of solution containing Dilaudid 16.5 mg/mL and bupivacaine 15.1 mg/mL. There are no changes in the rate. Patient tolerated procedure without difficulty. There are no complications. Plan and Disposition:: Patient was discharged without incident.
[2024-06-17 10:42] VITALS: BP 133/73; PULSE 78; RESP 18; O2SAT 95
== END 2024-06-17 10:43 | disposition home or self-care (01) ==
PROVIDERS: PCP Nurse Practitioner Family; Visit Provider Nurse Anesthetist, Certified Registered
DX: G89.29 Other chronic pain (principal); M51.36 Other intervertebral disc degeneration, lumbar region; M54.16 Radiculopathy, lumbar region; M96.1 Postlaminectomy syndrome, not elsewhere classified
CPT/HCPCS: 95991

== ENCOUNTER 2024-08-12 08:56 | Day surgery (SDC) | payer OTHER, BC, SELFPAY ==
[2024-08-12 09:11] VITALS: BP 104/55; PULSE 82; RESP 18; TEMP 36.6; O2SAT 97; BMI 39.9
[2024-08-12 09:18] VITALS: BP 113/58; PULSE 79; RESP 18; O2SAT 97
[2024-08-12 09:20] VITALS: BP 113/58; PULSE 79; RESP 18; O2SAT 97
[2024-08-12 09:35] VITALS: BP 118/68; PULSE 62; RESP 18; O2SAT 96
--- NOTE | 2024-08-12 09:39 | EXP.PAIN.PRO ---
Procedure Date: 08/12/24 Time: 09:35 Anesthesiologist:: Sonny aTbares CRNA Complications:: None Pre-procedure Diagnosis:: Degenerative disc lumbar spine multilevels. Lumbar radiculopathy. Lumbar postlaminectomy syndrome. Post-procedure Diagnosis:: Same. Indications for Procedure:: Patient is a very pleasant 54-year-old female who comes our clinic today for intrathecal pain pump interrogation refill. Patient currently being managed with Dilaudid 16.5 mg/mL at a rate of 3.004 mg/day. Also, bupivacaine 15.1 mg/mL at a rate of 3.004 mg/day. Patient does not report any side effects or complications. Patient not requesting any changes. She rates her pain 2/10. Procedure Details:: Details of the procedure explained to the patient. The patient taken procedure and placed in the supine position on the fluoroscopy table. The area over the lower left abdomen was cleansed using chlorhexidine as a cleansing solution. The pump was interrogated. The pump was accessed with ease using a 22-gauge inch and half needle and fluoroscopy guidance. 8 mL of solution was withdrawn discarded appropriate. The pump was then filled with 20 cc of a solution containing Dilaudid 16.5 mg and bupivacaine 15.1 mg. Pump was filled incrementally using fluoroscopy guidance in the lateral position. Patient tolerated procedure without difficulty. There are no complications. Plan and Disposition:: Patient was discharged without incident.
== END 2024-08-12 09:35 | disposition home or self-care (01) ==
LOC: SC.PAINP 08:57
PROVIDERS: PCP Nurse Practitioner Family; Visit Provider Nurse Anesthetist, Certified Registered
DX: M51.16 Intervertebral disc disorders with radiculopathy, lumbar region (principal); M96.1 Postlaminectomy syndrome, not elsewhere classified; Z79.891 Long term (current) use of opiate analgesic
CPT/HCPCS: 95991

== ENCOUNTER 2024-08-29 07:50 | Outpatient (CLI) | payer BC, SELFPAY ==
--- NOTE | 2024-08-29 07:54 | CA_ITS ---
APPROVED REPORT EXAM: Comprehensive 2D, Doppler, and color-flow Echocardiogram [facility] Consultant: Rosalinda Landaverde, RCS, RVS Ht: 5 ft 2 in Wt: 200lbs BSA: 1.91 BP: 130/78 mmHg Indications: HTN, smoker 2D Dimensions IVSd 1.10 cm LVEF (Visual) 40.10 % PWd 1.47 cm LA Volume 70.40 mL LVDd 6.06 cm LA Volume Index 36.90 mL/m2 (M/F) 16-34 LVDs 4.85 cm EF AP4 68.70 % Aortic Root 2.84 cm GL Strain -24.5 % Left Atrium 3.25 cm RVID Base (AP4) 3.32 cm (M/F) 2.5-4.1 LVOT 1.80 cm (M/F) 1.5-2.5 M-Mode Dimensions RVDd 1.93 cm (0.9-2.6) LVDd 6.06 cm (3.5-5.7) Ao Diam 3.11 cm (2.0-3.7) LVDs 4.47 cm (3.5-5.7) IVSd 1.86 cm (0.6-1.1) PWd 1.33 cm (0.6-1.1) EF (Teich) 61.30% EPSs 0.76 cm FS 29.20% EDV (Teich) 235.30 mL TAPSE 2.60 (<1.7) ESV (Teich) 91.00 mL LV Diastology E Decel Time 175 (160-240 msec) E/A Ratio 1.30 MED E' 9.9 (>= 7 cm/sec) MED A' 10.50 cm/s E'/MED E' Ratio 11.82 (<= 14) LAT E' 8.9 (>= 10 cm/sec) LAT A' 9.60 cm/s E/LAT E' Ratio 13.15 (<= 14) Aortic Valve LVOT Max 118.0 (70-110 cm/s) LIONEL Index 1.11 cm2/m2 LVOT VTI 26.05 cm AoV Peak George. 151.0 (50-130 cm/s) AO Mean GR. 4.60 (<5 mmHg) AO VTI 31.2 (18-25 cm) LIONEL (VTI) 2.12 (2.5-4.5 cm2) Mitral Valve MV E Max George. 117.0 (40-130 cm/s) MV A Velocity 90.0 (40-130 cm/s) E/A Ratio 1.30 MV Decel. Time 175 (160-240 ms) Left Ventricle The left ventricle is normal size. The left ventricular systolic function is normal. The left ventricular ejection fraction is within the normal range. There is normal left ventricular wall thickness. There is normal LV segmental wall motion. The left ventricular diastolic function is normal. LVEF is 55%. Right Ventricle The right ventricle is normal size. The right ventricular systolic function is normal. Atria The left atrium size is normal. The right atrium size is normal. Aortic Valve The aortic valve opens well. There is no aortic valvular stenosis. No aortic regurgitation is present. Mitral Valve The mitral valve is normal in structure. Trace mitral regurgitation. Tricuspid Valve The tricuspid valve leaflets are thin and pliable. Trace tricuspid regurgitation. There is insufficient TR jet to estimate RVSP. Pulmonic Valve The pulmonary valve is normal in structure. Trace pulmonic regurgitation. The ascending aorta is not well-visualized. Great Vessels The aortic root is normal in size. IVC is normal in size and collapses >50% with inspiration. Pericardium There is no pericardial effusion. Other Information Study Quality: Adequate Conclusion Normal biventricular systolic function. No significant valvular stenosis or regurgitation. Electronically signed by : Viridiana Swanson MD 09/07/2024 00:54:19
== END 2024-08-29 23:59 | disposition home or self-care (01) ==
LOC: RT 07:51
PROVIDERS: PCP Nurse Practitioner Family; Visit Provider Nurse Practitioner Family
DX: I10 Essential (primary) hypertension (principal)
CPT/HCPCS: 93306

== ENCOUNTER 2024-10-07 09:29 | Day surgery (SDC) | payer OTHER, BC, SELFPAY ==
[2024-10-07 09:51] VITALS: BP 118/65; PULSE 60; RESP 16; TEMP 37.1; O2SAT 93; BMI 35.6
[2024-10-07 10:12] VITALS: BP 136/76; PULSE 59; RESP 18; O2SAT 97
[2024-10-07 10:14] VITALS: BP 136/76; PULSE 59; RESP 18; O2SAT 97
--- NOTE | 2024-10-07 10:25 | EXP.PAIN.PRO ---
Procedure Date: 10/07/24 Time: 10:10 Anesthesiologist:: Sonny Tabares CRNA Complications:: None Pre-procedure Diagnosis:: CRPS bilateral legs. Lumbar back pain. Lumbar radiculopathy. Post-procedure Diagnosis:: Same. Indications for Procedure:: Patient is a pleasant 54-year-old female who comes our clinic today for intrathecal pain pump interrogation and refill. Patient is currently being managed with Dilaudid 16.5 mg/mL at a rate of 3.004 mg/day. Also bupivacaine 15.1 mg/mL at a rate of 2.750 mg/day. She is doing very well with her current settings. She is not reporting side effects or complications. She does not request any changes. Patient is awake alert [place] x 3. No acute distress. Flexion-extension lumbar spine somewhat guarded secondary to pain. Deep tendon reflexes upper and lower extremities normal. Motor strength upper and lower extremities normal. There is no gross sensory deficit. Procedure Details:: Details of the procedure explained to the patient. The patient taken procedure and placed in the supine position on fluoroscopy table. The area of the pump was cleansed using chlorhexidine as a cleansing solution. Using fluoroscopy guidance the intrathecal pain pump was accessed with ease using a 22-gauge inch and half needle. 9 mL of solution was withdrawn discarded appropriately. The pump was then filled with 20 cc of solution containing Dilaudid 16.5 mg/mL and bupivacaine 15.1 mg/mL. Patient tolerated procedure without difficulty. There are no complications. Plan and Disposition:: Patient was discharged without incident.
[2024-10-07 10:27] VITALS: BP 114/75; PULSE 65; RESP 16; O2SAT 97
== END 2024-10-07 10:27 | disposition home or self-care (01) ==
PROVIDERS: PCP Nurse Practitioner Family; Visit Provider Nurse Anesthetist, Certified Registered
DX: G90.523 Complex regional pain syndrome I of lower limb, bilateral (principal); M54.50 Low back pain, unspecified; M54.16 Radiculopathy, lumbar region
CPT/HCPCS: 95991

== ENCOUNTER 2024-12-05 09:34 | Day surgery (SDC) | payer OTHER, SELFPAY ==
[2024-12-05 09:58] VITALS: BP 117/52; PULSE 68; RESP 16; TEMP 36.6; O2SAT 96; BMI 34.7
--- NOTE | 2024-12-05 10:03 | P.PCN_ITS ---
Procedure Date: 12/05/24 Time: 10:16 Anesthesiologist:: Nelda Ferraro APRN Complications:: None Pre-procedure Diagnosis:: Degenerative disc disease of lumbar spine with lumbar radiculopathy symptoms, chronic pain syndrome, CRPS Post-procedure Diagnosis:: Same Indications for Procedure:: Patient is a pleasant 54-year-old female who presents today for intrathecal refill and reprogram. She rates her pain today a 4 Out of 10. She denies any new trauma or injury. She is currently managed with Dilaudid 16.5 mg/mL with a daily dose of 3.004 mg/day and bupivacaine 15.1 mg/mL with a daily dose of 2.75 mg/day. She denies any side effects. She states the dosage is still doing well and does not need any additional adjustment. Her Caleb has been reviewed and is appropriate. Physical Exam: General: Alert and oriented x3, no acute distress, pleasant and cooperative Lungs: Respirations even and unlabored, symmetrical chest expansion Eyes: PERRL Musculoskeletal: Flexion and extension of lumbar [spine] somewhat guarded secondary to pain, [antalgic gait noted] Neurological: Speech clear, no gross sensory deficit Procedure Details:: Informed consent was obtained and the risk and benefits of the procedure were explained to the patient. The patient had noninvasive monitoring placed including noninvasive blood pressure cuff and pulse oximeter. Patient's pump was interrogated. The area over the pump was cleansed with chlorhexidine as a cleansing solution. In sterile fashion the pump was accessed with a 22-gauge needle. Approximately 9 mls of the pump solution was removed and discarded appropriately. The pump was then refilled with 20 mL's of Dilaudid 16.5 mg/mL and bupivacaine 15.1 mg/mL. The needle was withdrawn and a bandage was placed over the puncture site. The infusion rate was reprogrammed and continued Dilaudid 3.004 mg/day and bupivacaine 2.75 mg/day. The patient tolerated well with no complication. Plan and Disposition:: Patient tolerated her procedure well with no complications and was discharged neurologically intact. Patient will return to clinic on or before her next intrathecal refill date. We will see the patient back in the clinic at the next intrathecal refill. Patient has been instructed to contact the clinic with any concerns before the next appointment. Dr. James has reviewed this note and agrees with this plan of care. This note was dictated using voice recognition software and make contain errors or omissions. -- It Is medically necessary for this patient to continue to have their intrathecal pump refilled at regular intervals. This patient had an intrathecal pain pump implanted after meeting criteria of chronic intractable pain for greater than 3 months and failing conservative treatments. Patient has committed and been c ompliant to the treatment plan and all planned follow up care. Since implantation of the intrathecal pain pump, the patient has had decreased pain and been more functional. Oral medications have been reduced including intake of oral opioids. Patient continues to do well with intrathecal therapy with decrease in pain symptoms and increase in functional status. Stopping intrathecal medications can lead to life threatening withdrawal, seizures, cardiac arrest, severe pain, and possible . Pumps that are not refilled at regular intervals can be damages and cause and need for replacement. We co ntinually titrate dose and concentration to optimize pain relief and function. We are limited in concentration for certain drugs to safely deliver medications through the pump and stay within the recommendations from the Polyanalgesic Consensus Committee Guidelines. Depending on dose and concentration these pumps may need to be refilled sooner than 3 months as we titrate. A UDS is needed to verify patient's compliance with our office pain contract. This is ordered based off specific treatments related to chronic pain with the potential to abuse certain medications.
[2024-12-05 10:24] VITALS: BP 122/70; PULSE 52; RESP 16; O2SAT 97
[2024-12-05 10:35] VITALS: BP 122/78; PULSE 71; RESP 18; O2SAT 97
[2024-12-05 10:43] VITALS: BP 122/78; PULSE 71; RESP 18; O2SAT 97
== END 2024-12-05 10:24 | disposition home or self-care (01) ==
PROVIDERS: PCP Nurse Practitioner Family; Visit Provider Nurse Practitioner Family
DX: M51.16 Intervertebral disc disorders with radiculopathy, lumbar region (principal); G89.4 Chronic pain syndrome; G90.50 Complex regional pain syndrome I, unspecified
CPT/HCPCS: 62370

== ENCOUNTER 2025-02-06 09:46 | Day surgery (SDC) | payer OTHER, BC, SELFPAY ==
[2025-02-06 10:02] VITALS: BP 128/71; PULSE 65; RESP 16; TEMP 36.6; O2SAT 98; BMI 32.9
--- NOTE | 2025-02-06 10:23 | EXP.PAIN.PRO ---
Procedure Date: 02/06/25 Time: 10:40 Anesthesiologist:: Nelda Ferraro APRN Complications:: None Pre-procedure Diagnosis:: Degenerative disc disease of lumbar spine with lumbar radiculopathy symptoms, chronic pain syndrome Post-procedure Diagnosis:: Same Indications for Procedure:: Patient is a pleasant 54-year-old female who presents today for intrathecal refill and reprogram. Today she rates her pain a 3 out of 10. She denies any new trauma or injury. She states overall she is doing well with her current settings. Patient is currently managed with Dilaudid 16.5 mg/mL with a daily dose of 3.004 mg/day and bupivacaine 15.1 mg/mL with a daily dose of 2.75 mg/day. She denies any side effects. Her Caleb has been reviewed. Physical Exam: General: Alert and oriented x3, no acute distress, pleasant and cooperative Lungs: Respirations even and unlabored, symmetrical chest expansion Eyes: PERRL Musculoskeletal: Flexion and extension of lumbar [spine] somewhat guarded secondary to pain, [antalgic gait noted] Neurological: Speech clear, no gross sensory deficit Procedure Details:: Informed consent was obtained and the risk and benefits of the procedure were explained to the patient. The patient had noninvasive monitoring placed including noninvasive blood pressure cuff and pulse oximeter. Patient's pump was interrogated. The area over the pump was cleansed with chlorhexidine as a cleansing solution. In sterile fashion the pump was accessed with a 22-gauge needle. Approximately 8.1 mls of the pump solution was removed and discarded appropriately. The pump was then refilled with 20 mL's of Dilaudid 16.5 mg/mL and bupivacaine 15.1 mg/mL. The needle was withdrawn and a bandage was placed over the puncture site. The infusion rate was reprogrammed and continued at its current dosage. The patient tolerated well with no complication. Plan and Disposition:: Patient tolerated the procedure well with no complications and was discharged neurologically intact. Patient will return to clinic on or before their next intrathecal refill date. We will see the patient back in the clinic at the next intrathecal refill. Patient has been instructed to contact the clinic with any concerns before the next appointment. Dr. James has reviewed this note and agrees with this plan of care. This note was dictated using voice recognition software and make contain errors or omissions. -- It Is medically necessary for this patient to continue to have their intrathecal pump refilled at regular intervals. This patient had an intrathecal pain pump implanted after meeting criteria of chronic intractable pain for greater than 3 months and failing conservative treatments. Patient has committed and been compliant to the treatment plan and all planned follow up care. Since implantation of the intrathecal pain pump, the patient has had decreased pain and been more functional. Oral medications have been reduced including intake of oral opioids. Patient continues to do well with intrathecal therapy with decrease in pain symptoms and increase in functional status. Stopping intrathecal medications can lead to life threatening withdrawal, seizures, cardiac arrest, severe pain, and possible . Pumps that are not refilled at regular intervals can be damages and cause and need for replacement. We continually titrate dose and concentration to optimize pain relief and function. We are limited in concentration for certain drugs to safely deliver medications through the pump and stay within the recommendations from the Polyanalgesic Consensus Committee Guidelines. Depending on dose and concentration these pumps may need to be refilled sooner than 3 months as we titrate. A UDS is needed to verify patient's compliance with our office pain contract. This is ordered based off specific treatments related to chronic pain with the potential to abuse certain medications.
[2025-02-06 10:31] VITALS: BP 117/54; PULSE 64; RESP 18; O2SAT 95
[2025-02-06 10:33] VITALS: BP 117/54; PULSE 65; RESP 18; O2SAT 95
[2025-02-06 10:47] VITALS: BP 129/70; PULSE 70; RESP 16; TEMP 36.6; O2SAT 98
== END 2025-02-06 10:47 | disposition home or self-care (01) ==
PROVIDERS: PCP Nurse Practitioner Family; Visit Provider Nurse Practitioner Family
DX: M51.16 Intervertebral disc disorders with radiculopathy, lumbar region (principal); G89.4 Chronic pain syndrome
CPT/HCPCS: 62370

== ENCOUNTER 2025-04-03 09:33 | Day surgery (SDC) | payer OTHER, BC, SELFPAY ==
[2025-04-03 09:42] VITALS: BP 111/52; PULSE 61; RESP 16; TEMP 36.8; O2SAT 96; BMI 34.7
--- NOTE | 2025-04-03 09:43 | P.HP_ITS ---
History of Present Illness *Admission Date: 04/03/25 *Reason for visit:: Intrathecal refill; DDD *History of present illness: Degenerative disc disease [facility] Disclaimer: The information contained in this section may have been updated after the patient was seen, as this information can be updated by other users. Medical History Implantable intrathecal infusion pump present Failed spinal cord stimulator CRPS (complex regional pain syndrome) Anxiety HTN (hypertension) Bladder retention Surgical History H/O left knee surgery Hx of tonsillectomy History of section Family History Other No significant family history Social History Smoking Status: Current every day smoker alcohol intake: never substance use type: denies use current occupational status: employed Travel in the last 8 weeks?: None Have you lived/traveled outside [place] in past 30 days?: No Contact w/someone who lives/traveled outside US past 30 days?: No Exposure to someone with infectious disease in past 14 days?: No Do you have a fever (greater than 100.4 F or 38 C)?: No Have you tested positive for COVID-19?: No Exposed to someone with COVID-19 in past 14 days?: No Do you have a sore throat?: No Do you have a cough?: No Do you have any weakness?: No Do you have any diarrhea?: No Are you experiencing any unusual bleeding?: No Do you have any muscle aches/pain?: No Do you have any abdominal pain?: No Are you experiencing loss of taste or smell?: No Other Medical History Have you received the Flu Vaccine for this season: No Have you received the Pneumonia Vaccine: No Review of Systems Review of Systems Review of systems:: pertinent systems reviewed and negative unless documented below Review of systems (narrative): Review of Systems: General: No recent weight changes, no fever, no sleep disturbances Respiratory: No cough, no shortness of air, no recurring pulmonary infections Cardiovascular/peripheral vascular: No chest pain, no palpitations, no edema, no shortness of breath Gastrointestinal: No new onset incontinence, normal bowel movements reported Genitourinary: No new onset incontinence Musculoskeletal: Chronic back pain Psychiatric: [Normal mood/affect] Neurological: [Denies weakness in extremities], [denies balance issues] Meds Home Medications and Allergies Home Medications ?Medication ?Instructions ?Recorded ?Confirmed ?Type alprazolam 1 mg tablet (Xanax) 1 mg PO Q8H Anxiety 07/05/23 04/03/25 History bupivacaine (PF) 0.25 % (2,500 1 ml epidural CONT CRPS 07/05/23 04/03/25 History mcg/mL) epidural solution celecoxib 200 mg capsule 200 mg PO DAILY Pain 07/05/23 04/03/25 History esomeprazole magnesium 40 mg 40 mg PO DAILY STOMACH 07/05/23 04/03/25 History capsule,delayed release hydrochlorothiazide 25 mg tablet 25 mg PO DAILY Fluid 07/05/23 04/03/25 History hydromorphone (PF) 0.2 mg/mL 0.2 mg IM CONT Pain 07/05/23 04/03/25 History injection syringe (Dilaudid (PF)) lisinopril 30 mg tablet 30 mg PO DAILY BLOOD PRESSURE 07/05/23 04/03/25 History ondansetron HCl 4 mg tablet 4 mg PO DIRECTED CRPS 07/05/23 04/03/25 History venlafaxine 150 mg 150 mg PO DAILY MOOD 07/05/23 04/03/25 History capsule,extended release 24 hr (Effexor XR) nitrofurantoin macrocrystal 50 mg 50 mg PO DAILY 12/25/23 04/03/25 History capsule (Macrodantin) lidocaine 5 % topical patch 1 patch topical DAILY PRN pain #30 06/08/24 04/03/25 Rx ea methocarbamol 500 mg tablet 1,000 mg (2 x 500 mg) PO Q6H PRN 06/08/24 04/03/25 Rx pain #30 tabs nebivolol 2.5 mg tablet (Bystolic) 2.5 mg PO DAILY 08/12/24 04/03/25 History New Prescriptions to Start Prescriptions: Allergies Allergy/AdvReac Type Severity Reaction Status Date / Time No Known Allergies Allergy Verified 08/12/24 09:11 Exam Constitutional Constitutional: no acute distress *Routine HEENT Exam Head: Present normocephalic and atraumatic Eye: Present PERRL ENT: Present mucous membranes moist *Routine Neck Exam Neck: Present supple *Routine Respiratory Exam Respiratory: Present CTA bilaterally *Routine Cardiovascular Exam Cardiovascular: Present RRR *Routine Abdominal Exam Abdominal: Present soft *Routine Rectal Exam Rectal:: deferred *Routine Genitalia Exam Genitalia:: normal female Routine Back/Spine/Pelvis Exam Back/Spine: Present pain with flexion *Routine Skin Exam Skin: Present intact and warm *Routine Neurological Exam Neurological: Present alert and oriented X3 Routine Psychiatric Exam Psychiatric: Present normal affect and normal thought process Assessment and Plan *Assessment and plan (1) Chronic pain syndrome: Status: Acute Category: Medical Code(s): G89.4 - Chronic pain syndrome (2) CRPS (complex regional pain syndrome): Status: Acute Qualifiers: Complex regional pain syndrome type: type I Complex regional pain syndrome affected site: lower extremity Laterality: bilateral Qualified Code(s): G90.523 - Complex regional pain syndrome I of lower limb, bilateral Category: Medical Plan Patient has been instructed to contact the clinic with any concerns before the next appointment. Dr. James has reviewed this note and agrees with this plan of care. This note was dictated using voice recognition software and make contain errors or omissions. All injections are used with Lidocaine, Bupivacaine and dexamethasone. Occasionally urine drug screen is needed to verify patient's compliance with our office pain contract. This is ordered based off specific treatments related to chronic pain with the potential to abuse certain medications.
--- NOTE | 2025-04-03 09:44 | P.PCN_ITS ---
Procedure Date: 04/03/25 Time: 09:56 Anesthesiologist:: Nelda Ferraro APRN Complications:: None Pre-procedure Diagnosis:: Degenerative disc disease of lumbar spine, chronic pain syndrome, CRPS Post-procedure Diagnosis:: Same Indications for Procedure:: Patient is a pleasant 54-year-old female who presents today for intrathecal refill and reprogram. Today she rates her pain a 3 out of 10. She denies any new trauma or injury. She does state that her pump is still working well. She is currently managed with Dilaudid 16.5 mg/mL with a daily dose of 3.004 mg/day and bupivacaine 15.1 mg/mL and a daily dose of 2.75 mg/day. She denies any side effects. She states she does not need any additional adjustment. Her Caleb has been reviewed and is appropriate. Physical Exam: General: Alert and oriented x3, no acute distress, pleasant and cooperative Lungs: Respirations even and unlabored, symmetrical chest expansion Eyes: PERRL Musculoskeletal: Flexion and extension of lumbar [spine] somewhat guarded secondary to pain, [antalgic gait noted] Neurological: Speech clear, no gross sensory deficit Procedure Details:: Informed consent was obtained and the risk and benefits of the procedure were explained to the patient. The patient had noninvasive monitoring placed including noninvasive blood pressure cuff and pulse oximeter. Patient's pump was interrogated. The area over the pump was cleansed with chlorhexidine as a cleansing solution. In sterile fashion the pump was accessed with a 22-gauge needle. Approximately 9.1 mls of the pump solution was removed and discarded appropriately. The pump was then refilled with 20 mL's of Dilaudid 16.5 mg/mL and bupivacaine 15.1 mg/mL. The needle was withdrawn and a bandage was placed over the puncture site. The infusion rate was reprogrammed and continued at its current dosage. The patient tolerated well with no complication. Plan and Disposition:: Patient tolerated the procedure well with no complications and was discharged neurologically intact. Patient will return to clinic on or before their next intrathecal refill date. We will see the patient back in the clinic at the next intrathecal refill. Patient has been instructed to contact the clinic with any concerns before the next appointment. Dr. James has reviewed this note and agrees with this plan of care. This note was dictated using voice recognition software and make contain errors or omissions. -- It Is medically necessary for this patient to continue to have their intrathecal pump refilled at regular intervals. This patient had an intrathecal pain pump implanted after meeting criteria of chronic intractable pain for greater than 3 months and failing conservative treatments. Patient has committed and been compliant to the treatment plan and all planned follow up care. Since implantation of the intrathecal pain pump, the patient has had decreased pain and been more functional. Oral medications have been reduced including intake of oral opioids. Patient continues to do well with intrathecal therapy with decrease in pain symptoms and increase in functional status. Stopping intrathecal medications can lead to life threatening withdrawal, seizures, cardiac arrest, severe pain, and possible . Pumps that are not refilled at regular intervals can be damages and cause and need for replacement. We continually titrate dose and concentration to optimize pain relief and function. We are limited in concentration for certain drugs to safely deliver medications through the pump and stay within the recommendations from the Polyanalgesic Con sensus Committee Guidelines. Depending on dose and concentration these pumps may need to be refilled sooner than 3 months as we titrate. A UDS is needed to verify patient's compliance with our office pain contract. This is ordered based off specific treatments related to chronic pain with the potential to abuse certain medications.
[2025-04-03 09:47] VITALS: BP 116/66; PULSE 63; RESP 18; O2SAT 98
[2025-04-03 10:02] VITALS: BP 115/59; PULSE 67; RESP 16; O2SAT 95
== END 2025-04-03 10:02 | disposition home or self-care (01) ==
PROVIDERS: PCP Nurse Practitioner Family; Visit Provider Nurse Practitioner Family
DX: G89.4 Chronic pain syndrome (principal); G90.523 Complex regional pain syndrome I of lower limb, bilateral; M51.369 Other intervertebral disc degeneration, lumbar region without mention of lumbar back pain or lower extremity pain
CPT/HCPCS: 62370

== ENCOUNTER 2025-05-29 09:09 | Day surgery (SDC) | payer OTHER, BC, SELFPAY ==
[2025-05-29 09:23] VITALS: BP 151/74; PULSE 60; RESP 18; O2SAT 97; BMI 33.8
[2025-05-29 09:45] VITALS: BP 125/67; PULSE 60; RESP 18; O2SAT 96
--- NOTE | 2025-05-29 09:54 | EXP.PM.HP ---
History of Present Illness *Admission Date: 05/29/25 *Reason for visit:: Intrathecal refill; DDD *History of present illness: Same [facility] Disclaimer: The information contained in this section may have been updated after the patient was seen, as this information can be updated by other users. Medical History Implantable intrathecal infusion pump present Failed spinal cord stimulator CRPS (complex regional pain syndrome) Anxiety HTN (hypertension) Bladder retention Surgical History H/O left knee surgery Hx of tonsillectomy History of section Family History Other No significant family history Social History Smoking Status: Current every day smoker alcohol intake: never substance use type: denies use current occupational status: employed Travel in the last 8 weeks?: None Have you lived/traveled outside [place] in past 30 days?: No Contact w/someone who lives/traveled outside [place] past 30 days?: No Exposure to someone with infectious disease in past 14 days?: No Do you have a fever (greater than 100.4 F or 38 C)?: No Have you tested positive for COVID-19?: No Exposed to someone with COVID-19 in past 14 days?: No Do you have a sore throat?: No Do you have a cough?: No Do you have any weakness?: No Do you have any diarrhea?: No Are you experiencing any unusual bleeding?: No Do you have any muscle aches/pain?: No Do you have any abdominal pain?: No Are you experiencing loss of taste or smell?: No Other Medical History Have you received the Flu Vaccine for this season: No Have you received the Pneumonia Vaccine: No Review of Systems Review of Systems Review of systems:: pertinent systems reviewed and negative unless documented below Review of systems (narrative): Review of Systems: General: No recent weight changes, no fever, no sleep disturbances Respiratory: No cough, no shortness of air, no recurring pulmonary infections Cardiovascular/peripheral vascular: No chest pain, no palpitations, no edema, no shortness of breath Gastrointestinal: No new onset incontinence, normal bowel movements reported Genitourinary: No new onset incontinence Musculoskeletal: Chronic back pain Psychiatric: [Normal mood/affect] Neurological: [Denies weakness in extremities], [denies balance issues] Meds Home Medications and Allergies Home Medications ?Medication ?Instructions ?Recorded ?Confirmed ?Type alprazolam 1 mg tablet (Xanax) 1 mg PO Q8H Anxiety 07/05/23 05/29/25 History bupivacaine (PF) 0.25 % (2,500 1 ml epidural CONT CRPS 07/05/23 05/29/25 History mcg/mL) epidural solution celecoxib 200 mg capsule 200 mg PO DAILY Pain 07/05/23 05/29/25 History esomeprazole magnesium 40 mg 40 mg PO DAILY STOMACH 07/05/23 05/29/25 History capsule,delayed release hydrochlorothiazide 25 mg tablet 25 mg PO DAILY Fluid 07/05/23 05/29/25 History hydromorphone (PF) 0.2 mg/mL 0.2 mg IM CONT Pain 07/05/23 05/29/25 History injection syringe (Dilaudid (PF)) lisinopril 30 mg tablet 30 mg PO DAILY BLOOD PRESSURE 07/05/23 05/29/25 History ondansetron HCl 4 mg tablet 4 mg PO DIRECTED CRPS 07/05/23 05/29/25 History venlafaxine 150 mg 150 mg PO DAILY MOOD 07/05/23 05/29/25 History capsule,extended release 24 hr (Effexor XR) nitrofurantoin macrocrystal 50 mg 50 mg PO DAILY 12/25/23 05/29/25 History capsule (Macrodantin) lidocaine 5 % topical patch 1 patch topical DAILY PRN pain #30 06/08/24 05/29/25 Rx ea methocarbamol 500 mg tablet 1,000 mg (2 x 500 mg) PO Q6H PRN 06/08/24 05/29/25 Rx pain #30 tabs nebivolol 2.5 mg tablet (Bystolic) 2.5 mg PO DAILY 08/12/24 05/29/25 History New Prescriptions to Start Prescriptions: Allergies Allergy/AdvReac Type Severity Reaction Status Date / Time No Known Allergies Allergy Verified 08/12/24 09:11 Exam Data for Last 24 hours Vital signs and Labs for Last 24 Hours: Pulse Resp BP Pulse Ox O2 Del Method 60 18 125/67 96 Room Air 07/11/25 09:45 05/29/25 09:45 05/29/25 09:45 05/29/25 09:45 05/29/25 09:45 I & O for Last 24 hours: Intake & Output 05/26/25 05/27/25 05/28/25 05/29/25 23:59 23:59 23:59 23:59 Weight 185 lb Constitutional Constitutional: no acute distress *Routine HEENT Exam Head: Present normocephalic and atraumatic Eye: Present PERRL ENT: Present mucous membranes moist *Routine Neck Exam Neck: Present supple *Routine Respiratory Exam Respiratory: Present CTA bilaterally *Routine Cardiovascular Exam Cardiovascular: Present RRR *Routine Abdominal Exam Abdominal: Present soft *Routine Rectal Exam Rectal:: deferred *Routine Genitalia Exam Genitalia:: deferred Routine Back/Spine/Pelvis Exam Back/Spine: Present pain with flexion *Routine Skin Exam Skin: Present intact and dry *Routine Neurological Exam Neurological: Present alert and oriented X3 Routine Psychiatric Exam Psychiatric: Present normal affect and normal thought process Assessment and Plan *Assessment and plan (1) Chronic pain syndrome: Status: Acute Category: Medical Code(s): G89.4 - Chronic pain syndrome Plan Patient has been instructed to contact the clinic with any concerns before the next appointment. Dr. James has reviewed this note and agrees with this plan of care. This note was dictated using voice recognition software and make contain errors or omissions. All injections are used with Lidocaine, Bupivacaine and dexamethasone. Occasionally urine drug screen is needed to verify patient's compliance with our office pain contract. This is ordered based off specific treatments related to chronic pain with the potential to abuse certain medications.
--- NOTE | 2025-05-29 09:55 | P.PCN_ITS ---
Procedure Date: 05/29/25 Time: 09:55 Anesthesiologist:: Nelda Ferraro APRN Complications:: None Pre-procedure Diagnosis:: Chronic pain syndrome, degenerative disc disease Post-procedure Diagnosis:: Same Indications for Procedure:: Patient is a pleasant 54-year-old female who presents today for intrathecal refill and reprogram. Today she rates her pain a 2 out of 10. She states she is doing well. She is currently managed with Dilaudid 16.5 mg/mL with a daily dose of 3.004 mg/day and bupivacaine 15.1 mg/mL with a daily dose of 2.75 mg/day. She denies any side effects. Her Caleb has been reviewed and is appropriate. Physical Exam: General: Alert and oriented x3, no acute distress, pleasant and cooperative Lungs: Respirations even and unlabored, symmetrical chest expansion Eyes: PERRL Musculoskeletal: Flexion and extension of lumbar [spine] somewhat guarded secondary to pain, [antalgic gait noted] Neurological: Speech clear, no gross sensory deficit Procedure Details:: Informed consent was obtained and the risk and benefits of the procedure were explained to the patient. The patient had noninvasive monitoring placed including noninvasive blood pressure cuff and pulse oximeter. Patient's pump was interrogated. The area over the pump was cleansed with chlorhexidine as a cleansing solution. In sterile fashion the pump was accessed with a 22-gauge needle. Approximately 9.5 mls of the pump solution was removed and discarded appropriately. The pump was then refilled with 20 mL's of Dilaudid 16.5 mg/mL and bupivacaine 15.1 mg/mL. The needle was withdrawn and a bandage was placed over the puncture site. The infusion rate was reprogrammed and continued at its current dosage. The patient tolerated well with no complication. Plan and Disposition:: Patient tolerated the procedure well with no complications and was discharged neurologically intact. Patient will return to clinic on or before their next intrathecal refill date. We will see the patient back in the clinic at the next intrathecal refill. Patient has been instructed to contact the clinic with any concerns before the next appointment. Dr. James has reviewed this note and agrees with this plan of care. This note was dictated using voice recognition software and make contain errors or omissions. -- It Is medically necessary for this patient to continue to have their intrathecal pump refilled at regular intervals. This patient had an intrathecal pain pump implanted after meeting criteria of chronic intractable pain for greater than 3 months and failing conservative treatments. Patient has committed and been compliant to the treatment plan and all planned follow up care. Since implantation of the intrathecal pain pump, the patient has had decreased pain and been more functional. Oral medications have been reduced including intake of oral opioids. Patient continues to do well with intrathecal therapy with decrease in pain symptoms and increase in functional status. Stopping intra thecal medications can lead to life threatening withdrawal, seizures, cardiac arrest, severe pain, and possible . Pumps that are not refilled at regular intervals can be damages and cause and need for replacement. We continually titrate dose and concentration to optimize pain relief and function. We are limited in concentration for certain drugs to safely deliver medications through the pump and stay within the recommendations from the [employer] Consensus [employer] Guidelines. Depending on dose and concentration these pumps may need to be refilled sooner than 3 months as we titrate. A UDS is needed to verify patient's compliance with our office pain contract. This is ordered based off specific treatments related to chronic pain with the potential to abuse certain medications.
[2025-05-29 09:58] VITALS: BP 135/70; PULSE 59; RESP 18; O2SAT 96
== END 2025-05-29 09:58 | disposition home or self-care (01) ==
PROVIDERS: PCP Nurse Practitioner Family; Visit Provider Nurse Practitioner Family
DX: Z45.1 Encounter for adjustment and management of infusion pump (principal); G89.4 Chronic pain syndrome; M51.9 Unspecified thoracic, thoracolumbar and lumbosacral intervertebral disc disorder; I10 Essential (primary) hypertension; F41.9 Anxiety disorder, unspecified; F17.200 Nicotine dependence, unspecified, uncomplicated; Z79.899 Other long term (current) drug therapy; Z79.1 Long term (current) use of non-steroidal anti-inflammatories (NSAID)
CPT/HCPCS: 62370